=== PATIENT | female | born 1970 | race Caucasian/White ===

== ENCOUNTER 2021-01-31 14:48 | Emergency (ER) | payer BC, SELFPAY ==
[2021-01-31 15:01] VITALS: BP 146/100; PULSE 89; RESP 16; TEMP 36.6; O2SAT 98; BMI 25.8
--- NOTE | 2021-01-31 15:31 | ED_ITS ---
HPI - Extremity Problem General Chief complaint: Extremity Problem Stated complaint: ARM PAIN Time Seen by Provider: 01/31/21 15:31 Source: patient Mode of arrival: ambulatory Limitations: no limitations History of Present Illness HPI Narrative: Pleasant 50-year-old female with history of RA complaining of right wrist pain ongoing for past 1 day states feels like having a RA flare. Pain described as 9/10 sharp and radiates up the arm. There is no associated redness, swelling, fever, chest pain or shortness of breath. No headache, neck pain or dizziness. MD Complaint: extremity pain Onset (ago): day(s) Pain Consistency: constant Location: right Quality: aching Radiation: proximal Relieving factors: medication (States in the past has had tapered dose of prednisone which helped and was on Plaquenil but due to insurance no longer on it. Being followed by paint factory worker at [facility] has an appointment coming up in February) Exacerbating factors: range of motion Related Data Previous Rx's Medication Instructions Recorded naproxen 500 mg PO BID PRN #14 tab 01/31/21 oxycodone 5 mg PO Q8H PRN 3 Days #10 tab 01/31/21 prednisone 10 mg PO PER PKG DIR #21 ea 01/31/21 Allergies Allergy/AdvReac Type Severity Reaction Status Date / Time sulfamethoxazole Allergy Severe LOW WHITE Verified 01/31/21 15:18 [From BACTRIM] CELLS trimethoprim [From BACTRIM] Allergy Severe LOW WHITE Verified 01/31/21 15:18 CELLS aspirin [ASPIRIN] Allergy Unknown HIVES Verified 01/31/21 15:18 azithromycin Allergy Unknown Hives Verified 01/31/21 15:18 codeine [CODEINE] Allergy Unknown HIVES Verified 01/31/21 15:18 erythromycin base Allergy Unknown HIVES Verified 01/31/21 15:18 [ERYTHROMYCIN BASE] ibuprofen [IBUPROFEN] Allergy Unknown HIVES Verified 01/31/21 15:18 Penicillins [PENICILLINS] Allergy Unknown HIVES Verified 01/31/21 15:18 Sulfacet-R Allergy Unknown Unknown Uncoded 01/31/21 15:18 Review of Systems Review of Systems: Constitutional: No Weight loss, No Fever, No Chills, No Night Sweats, No Fatigue, No Malaise ENT/Mouth: No Hearing loss, No Ear Pain, No Nasal Congestion, No Sinus Pain, No Hoarseness, No sore throat, No Rhinorrhea, No Swallowing Difficulty Eyes: No Eye Pain, No Swelling, No Redness, No Foreign Body, No Discharge, No Vision Changes Cardiovascular: No Chest Pain, No SOB, No Dyspnea on Exertion, No Orthopnea, No Edema, No Palpitations Respiratory: No Cough, No Sputum, No Wheezing, No Dyspnea Gastrointestinal: No Nausea, No Vomiting, No Diarrhea, No Constipation, No abdominal Pain, No Hematochezia, No Melena Genitourinary: No Dysuria, No Urinary Frequency, No Hematuria, No Urinary Incontinence, No Urgency, No Flank Pain, No Urinary Flow Changes, No Hesitancy Musculoskeletal: No joint pain, No Myalgias, No Joint Swelling, as noted per HPI Skin: No Skin Lesions, No rash Neuro: No Weakness, No Numbness, No Paresthesias, No Loss of Consciousness, No Dizziness, No Headache Psych: No Social Issues Heme/Lymph: No Bruising, No Bleeding,No Lymphadenopathy Endocrine: No Polyuria, No Polydipsia, No Temperature Intolerance Yes all other systems are reviewed and are negative [facility] Past Medical History Medical History Bronchitis Cyclic neutropenia Rheumatoid arthritis Social History Social History Advance Directives: No Advance Directives Information Provided: No Physical Exam Vital Signs: Vital Signs: Last Vital Signs Temp 97.9 F 01/31/21 15:01 Pulse 89 01/31/21 15:01 Resp 16 01/31/21 15:01 BP 146/100 H 01/31/21 15:01 Pulse Ox 98 01/31/21 15:01 Body Mass Index 25.8 Reviewed Const: General: cooperative and healthy appearing; No acute distress or intoxicated appearing Nutritional Appearance: average body habitus Orientation/consciousness: patient oriented x3 HENMT: Head: Yes normal to inspection Ears: hearing grossly normal bilaterally Eyes: General: appearance normal, both eyes and all related structures Visual Medrano: normal visual medrano by confrontation Neck: Neck: Yes normal visual inspection, No positive Brudzinski's sign, No positive Kernig's sign and No tender Thyroid: Thyroid normal Chest: Chest palpation & inspection: normal inspection of the chest Resp: Effort & Inspection: normal respiratory effort Auscultation: clear to auscultation bilaterally Cardio: Jugular venous distension: no JVD Rhythm: regular rhythm Heart sounds: S1 normal heart sound present and S2 normal heart sound present GI: Inspection: Yes normal to inspection Percussion: Yes normal to percussion Auscultation: normal bowel sounds : General: Yes no CVA tenderness Back/Spine/Pelvis: Back: no CVA tenderness Skin: General skin exam: no rashes or lesions noted Neuro: General: patient oriented x3 Extrem: General: Yes normal to inspection Right upper extremity: wrist Details: normal to inspection, tenderness Location: of the distal radius and of the distal ulna, radial pulse present, ulnar pulse present and other (Positive phalens ); no swelling, no ecchymosis and no crepitus Course Course Course Narrative: Mass PAT reviewed no concerning pattern, neurovascularly intact. Strength within normal limits. Pulses within normal limits. Will give her short course of prednisone and nonsteroidals and follow-up with food and beverage assistant manager. Discharge Plan Discharge Clinical Impression: Arthritis pain, wrist Patient Disposition: Home, Self-Care Instructions: Arthralgia (ED) Additional Instructions: Supportive cares reviewed Follow-up with your paint factory worker as planned Return if any concerns or worsening symptoms Thank you Prescriptions: New oxycodone 5 mg tablet 5 mg PO Q8H PRN (Reason: pain) 3 Days Qty: 10 RF: 0 naproxen 500 mg tablet 500 mg PO BID PRN (Reason: pain) Qty: 14 RF: 0 prednisone 10 mg tablets,dose pack 10 mg PO PER PKG DIR Qty: 21 RF: 0 Referrals: Nikolai Celaya MD [Primary Care Provider] - 3 days
== END 2021-01-31 15:56 | disposition home or self-care (01) ==
PROVIDERS: Emergency Provider Emergency Medicine; PCP Internal Medicine
DX: M06.9 Rheumatoid arthritis, unspecified (principal); M25.531 Pain in right wrist
CPT/HCPCS: 99283